=== PATIENT | male | born 1960 | race Caucasian/White ===

== ENCOUNTER 2023-10-11 07:14 | Day surgery (SDC) | payer BC, SELFPAY ==
[2023-10-11] VITALS (10 sets, daily range): BP systolic 86–142; BP diastolic 63–86; BMI 27.4
[2023-10-11] MEDS: NSS 231 ML IV (07:45)
[2023-10-11] MEDS: LOW STRENGTH ASPIRIN 81 MG PO (08:02)
[2023-10-11] MEDS: NSS 1000 IV (10:40)
--- NOTE | 2023-10-11 11:23 | ITS.CL.CATH ---
Computer Forensics Technician - Catheterization
Cardiac Catheterization
Procedure Report:
RIGHT AND LEFT HEART CATHETERIZATION
Date of Procedure: October 11, 2023
Primary Care Physician: Dr. Jonathon Boyce
Primary Mill Feeder: Myself
Procedures performed:
1: Coronary angiography
2: Left ventriculography
3: Right heart catheterization
INDICATION: The patient is a 63-year-old man with a past medical history significant for severe lung disease status post severe pneumonia in 1999 requiring prolonged intubation and tracheostomy, ongoing smoking with COPD, recovering alcoholism in
remission, peripheral arterial disease with a 30 mmHg drop in blood pressure in the right arm suggesting proximal severe stenosis/occlusion without symptoms, and hypertension who is referred for persistent tachycardia. He was admitted to [place]
in respiratory distress and noted to have an elevated BNP at that time. It was felt to be mostly an exacerbation of COPD but there was also mild CHF. Echo at that time showed inferolateral wall motion abnormality with a visually estimated ejection
fraction of 45%. He is referred for diagnostic right and left heart catheterization.
ACCESS: The patient was prepped and draped in usual sterile fashion. A 6 [place] sheath was placed in the left radial artery using the Seldinger over the wire technique. A 5 [place] sheath was then placed in the right common femoral vein using the
same technique.
HEMODYNAMIC FINDINGS (mmHg):
RA(a,v,m): 15, 12, 12
RV(s/d,EDP): 46/12, 14
PA(s/d/m): 45/25, 28
PCWP(a,v,m): 20, 18, 16
LV(s/d,EDP): 128/14, 16
Ao(s/d,m): 128/82, 99
Oxygen Saturations (mg/dl):
PA: 67% on room air
LV: 91% on room air
Cardiac Output/Index (l/min / l/min/m2):
Estimated Starr Method: 7.3 /3.8
Heart Rate: 110 bpm
Hemoglobin: 10.7 g/dL
VALVE HEMODYNAMICS:
No significant aortic or mitral valve stenosis.
ANGIOGRAPHIC FINDINGS:
Single-plane Left Ventriculography in [place] Projection: Focal diaphragmatic hypokinesis. Overall low normal visually estimated ejection fraction of 50 to 55%. No significant mitral regurgitation.
Coronary Angiography:
Dominance: Right
Left Main: Medium caliber with mild distal tapering.
Left Anterior Descending: The left anterior descending artery is a medium caliber vessel that gives rise to a medium caliber bifurcating high first diagonal branch that is widely patent with normal flow. The LAD itself has moderate calcification
without focal obstructive disease. There is a smooth 30 to 40% stenosis in the LAD after the diagonal branch takeoff.
Left Circumflex: The left circumflex is a medium caliber nondominant system that gives rise to 2 medium caliber obtuse marginal branches that are widely patent with normal flow.
Right Coronary: The right coronary artery has a somewhat high anterior takeoff. The right coronary artery has a flush chronic total occlusion in the mid RCA at the takeoff of the major RV marginal branch that has a ostial 80 to 90% stenosis with
normal flow. The large dominant distal RCA system is filled by brisk [id number] collaterals to a large PLV branch and posterior descending artery.
Fluoroscopy Time (min): 5.8
Radiation Dose (mGy): 337
DAP (Gy.cm2): 26
Closure device: None. A TR band was applied for hemostasis at the right wrist. The femoral vein groin sheath will be pulled with manual pressure for hemostasis.
Complications: None.
ASSESSMENT:
1: Single-vessel obstructive coronary artery disease with a chronic total occlusion of the right coronary artery. This is well collateralized from the left and can be treated medically.
2: Low normal LV systolic function with inferior wall motion abnormality as described above.
3: No significant mitral regurgitation.
4: Moderately elevated pulmonary pressures.
5: High cardiac output state with a cardiac output by estimated Starr of 7.3 L/min. Top normal to mildly elevated pulmonary vascular resistance.
CONCLUSIONS and RECOMMENDATIONS:
1: Continue aggressive medical therapy for coronary and peripheral arterial disease with aspirin, statin, antihypertensive therapy. Smoking cessation remains critical.
2: Check TSH to be sure he is not hyperthyroid. Will discuss with PCP. Clinical follow-up with pulmonary as scheduled.
Sukh Fink M.D.
Copy to: Dr. Jonathon Boyce
== END 2023-10-11 14:15 | disposition home or self-care (01) ==
LOC: CATH 07:14
PROVIDERS: Nurse Practitioner Adult Health; ATTENDING PHYSICIAN Internal Medicine Interventional Cardiology; FAMILY PHYSICIAN Internal Medicine
DX: I25.10 Atherosclerotic heart disease of native coronary artery without angina pectoris (principal); I73.9 Peripheral vascular disease, unspecified; F10.21 Alcohol dependence, in remission; F17.210 Nicotine dependence, cigarettes, uncomplicated; I50.9 Heart failure, unspecified; J44.1 Chronic obstructive pulmonary disease with (acute) exacerbation; R00.0 Tachycardia, unspecified; I11.0 Hypertensive heart disease with heart failure; J44.9 Chronic obstructive pulmonary disease, unspecified; I25.82 Chronic total occlusion of coronary artery
CPT/HCPCS: 84443; 93460; C1769; C1894; Q9967